=== PATIENT | female | born 1945 | race Caucasian/White ===

== ENCOUNTER → 2018-09-17 | Outpatient (CLI) | payer OTHER | END | disposition home or self-care (01) | LOC: RAH 14:12 | PROVIDERS: ATTEND Internal Medicine | DX: G45.9 Transient cerebral ischemic attack, unspecified (principal); R47.81 Slurred speech; M62.81 Muscle weakness (generalized) | CPT/HCPCS: 70450 ==

== ENCOUNTER → 2018-09-20 | Outpatient (CLI) | payer OTHER | END | disposition home or self-care (01) | LOC: RAH 08:58 → EDUNIT# 09:00 | PROVIDERS: ATTEND Internal Medicine | DX: I35.8 Other nonrheumatic aortic valve disorders (principal); G45.9 Transient cerebral ischemic attack, unspecified; I10 Essential (primary) hypertension; R47.81 Slurred speech; R53.1 Weakness | CPT/HCPCS: 93306; 93880 ==

== ENCOUNTER → 2019-01-05 | Outpatient (CLI) | payer OTHER | END | disposition home or self-care (01) | LOC: RAH 08:46 | PROVIDERS: ATTEND Internal Medicine | DX: Z12.31 Encounter for screening mammogram for malignant neoplasm of breast (principal) | CPT/HCPCS: 77067 ==

== ENCOUNTER → 2020-01-09 | Outpatient (CLI) | payer OTHER | END | disposition home or self-care (01) | LOC: RAH 09:34 | PROVIDERS: ATTEND Internal Medicine | DX: Z12.31 Encounter for screening mammogram for malignant neoplasm of breast (principal) | CPT/HCPCS: 77067 ==

== ENCOUNTER → 2020-11-21 | Outpatient (CLI) | payer OTHER | END | disposition home or self-care (01) | LOC: OIH 10:53 | PROVIDERS: ATTEND Internal Medicine | DX: M17.11 Unilateral primary osteoarthritis, right knee (principal) | CPT/HCPCS: 73560 ==

== ENCOUNTER → 2021-01-21 | Outpatient (CLI) | payer OTHER | END | disposition home or self-care (01) | LOC: RAH 11:24 | PROVIDERS: ATTEND Internal Medicine | DX: Z12.31 Encounter for screening mammogram for malignant neoplasm of breast (principal) | CPT/HCPCS: 77067 ==

== ENCOUNTER → 2023-02-02 | Outpatient (CLI) | payer OTHER | END | disposition home or self-care (01) | LOC: RAH 09:56 | PROVIDERS: ATTEND Internal Medicine | DX: Z12.31 Encounter for screening mammogram for malignant neoplasm of breast (principal) | CPT/HCPCS: 77067 ==

== ENCOUNTER 2023-04-26 03:21 | Emergency (ER) | payer OTHER ==
[~2023-04-26] VITALS: Ht 162.6 cm; Wt 72.6 kg
[2023-04-26 03:55] LABS: BASOPHILS # (AUTO) 0.07 K/uL (0.00-0.20); BASOPHILS % (AUTO) 0.5 % (0.0-5.0); EOSINOPHILS # (AUTO) 0.07 K/uL (0.00-0.70); EOSINOPHILS % (AUTO) 0.5 % (0.0-8.0); IMMATURE GRANULOCYTE ABSOLUTE 0.06 K/uL (0-1); LYMPHOCYTES # (AUTO) 1.7 K/uL (1.0-4.8); LYMPHOCYTES % (AUTO) 11.4 % (21.0-51.0); MEAN CORPUSCULAR HEMOGLOBIN 29.2 pg (27.0-33.0); MEAN CORPUSCULAR HGB CONC 32.3 g/dL (32.0-36.0); MEAN CORPUSCULAR VOLUME 90.6 fL (79-99); MONOCYTES # (AUTO) 0.9 K/uL (0.1-1.0); MONOCYTES % (AUTO) 6.2 % (3.0-13.0); NEUTROPHILS # (AUTO) 11.8 K/uL (1.8-7.7); PLATELET COUNT (AUTO) 274 K/uL (130-400); RED CELL DISTRIBUTION WIDTH 13.3 % (11.0-15.5); WHITE BLOOD COUNT (AUTO) 14.6 K/uL (4.8-10.8)
[2023-04-26 04:09] LABS: ALBUMIN 3.7 g/dL (3.5-5.0); BILIRUBIN,TOTAL 0.6 mg/dL (0.2-1.0); POTASSIUM 3.6 mmol/L (3.5-5.1); TOTAL PROTEIN, SERUM 7.1 g/dL (6.0-8.3)
[2023-04-26 05:06] VITALS: BP 143/68; PULSE 94; RESP 18; O2SAT 98
[2023-04-26] MEDS ORDERED: POLY17PO4 PO (05:12)
[2023-04-26] MEDS ORDERED: PANT40TA55 PO (05:12)
[2023-04-26] MEDS ORDERED: PANTOPRAZOLE 40 MG TAB DR PO SCH (05:30)
[2023-04-26] MEDS ORDERED: AMLO-258 PO (18:18)
[2023-04-26] MEDS ORDERED: CARV6.25 PO (18:18)
[2023-04-26] MEDS ORDERED: ROSU20TA73 PO (18:18)
[2023-04-29] MEDS ORDERED: LEVO-70 PO (08:51)
[2023-04-29] MEDS ORDERED: METR-172 PO (08:51)
== END 2023-04-26 05:38 | disposition home or self-care (01) ==
LOC: EDH 03:21
DX: K92.2 Gastrointestinal hemorrhage, unspecified (principal); E78.00 Pure hypercholesterolemia, unspecified; I10 Essential (primary) hypertension; Z88.0 Allergy status to penicillin; Z88.2 Allergy status to sulfonamides; Z90.49 Acquired absence of other specified parts of digestive tract; Z90.710 Acquired absence of both cervix and uterus
CPT/HCPCS: 36415; 80053; 82270; 85025; 93005

== ENCOUNTER → 2024-02-04 | Outpatient (CLI) | payer OTHER ==
[~2024-02-04] MED LIST: AMLO-258 PO; CARV6.25 PO; LEVO-70 PO; METR-172 PO; ROSU20TA98 PO
== END | disposition home or self-care (01) ==
LOC: RAH 10:25
PROVIDERS: ATTEND Internal Medicine
DX: Z12.31 Encounter for screening mammogram for malignant neoplasm of breast (principal); R92.30 Dense breasts, unspecified
CPT/HCPCS: 77067

== ENCOUNTER → 2024-07-25 | Outpatient (CLI) | payer OTHER ==
--- NOTE | 2024-07-25 16:45 | HMCIMG ---
Exam Type: ANKLE 2VWS RT Clinical Information: RIGHT ANKLE PAIN Comparison: None Findings: Routine views of the ankles reveal no evidence of acute fracture or dislocation. The ankle mortise is intact. There is no evidence of arthritic or inflammatory changes except for small calcaneal spurs. The soft tissues are preserved. IMPRESSION: Small calcaneal spurs.
--- NOTE | 2024-07-25 16:46 | HMCIMG ---
Exam Type: KNEE 3VWS RT Clinical Information: RIGHT KNEE PAIN Comparison: None Findings: The bone examination is unremarkable. No fractures or dislocations are seen. No radiopaque foreign bodies are noted. Soft tissues are preserved. IMPRESSION: Normal examination.
--- NOTE | 2024-07-25 16:47 | HMCIMG ---
Exam Type: HIP UNILAT 2-3VW RIGHT Clinical Information: RIGHT HIP PAIN Comparison: None Findings: The bone examination is unremarkable. No fractures or dislocations are seen. No radiopaque foreign bodies are noted. Soft tissues are preserved. IMPRESSION: Normal examination.
== END | disposition home or self-care (01) ==
LOC: RAH 12:11
PROVIDERS: ATTEND Internal Medicine
DX: M77.31 Calcaneal spur, right foot (principal); M25.571 Pain in right ankle and joints of right foot; M25.551 Pain in right hip; M25.561 Pain in right knee
CPT/HCPCS: 73502; 73562; 73600

== ENCOUNTER → 2025-01-10 | Outpatient (CLI) | payer OTHER ==
--- NOTE | 2025-01-10 18:00 | HMCIMG ---
EXAM: CT Abdomen and Pelvis without Intravenous Contrast CLINICAL HISTORY: Disorder of the adrenal gland. TECHNIQUE: Axial computed tomography images of the abdomen and pelvis without intravenous contrast. Dose reduction technique was used including one or more of the following: automated exposure control, adjustment of mA and kV according to patient size, and/or iterative reconstruction. CONTRAST: None. COMPARISON: CT ABD/PEL dated 04/26/2023, 15:59 pm FINDINGS: LUNG BASES: No basilar airspace consolidation or pleural effusion. LIVER: Unremarkable. GALLBLADDER AND BILE DUCTS: Unremarkable. No calcified stone. No ductal dilation. PANCREAS: Unremarkable. SPLEEN: Unremarkable. ADRENAL GLANDS: Unremarkable. KIDNEYS, URETERS, AND BLADDER: Large bilateral renal cysts, followed up with ultrasound, negative for obstructing ureteral stone. No hydronephrosis or nephrolithiasis. No ureteral or bladder calculi. STOMACH AND BOWEL: No obstruction. No wall thickening. Previously visualized thickening of the left colon from prior CT dated 04/26/2023 is not seen on the current exam. Sigmoid colon diverticulosis without diverticulitis. APPENDIX: No CT evidence for appendicitis. PERITONEUM: No free fluid. No free air. LYMPH NODES: No lymphadenopathy. REPRODUCTIVE: Uterus and adnexa are not visualized. VASCULATURE: Atherosclerotic aortoiliac bifurcation. No aortic aneurysm. ABDOMINAL WALL AND SOFT TISSUES: Unremarkable. BONES: No fracture or suspicious osseous abnormality. IMPRESSION: 1. No acute findings. 2. Sigmoid colon diverticulosis without diverticulitis. 3. Large bilateral renal cysts, followed up with ultrasound, negative for obstructing ureteral stone. 4. Previously visualized thickening of the left colon from prior CT ABD/PEL dated 04/26/2023, 15:59 pm is not seen on the current exam /[place]
== END | disposition home or self-care (01) ==
LOC: RAH 13:06
PROVIDERS: ATTEND Internal Medicine
DX: K57.30 Diverticulosis of large intestine without perforation or abscess without bleeding (principal); N28.1 Cyst of kidney, acquired; I70.0 Atherosclerosis of aorta; E27.9 Disorder of adrenal gland, unspecified
CPT/HCPCS: 74176

== ENCOUNTER → 2025-02-07 | Outpatient (CLI) | payer OTHER ==
--- NOTE | 2025-02-09 09:04 | HMCIMG ---
DIGITAL BILATERAL SCREENING MAMMOGRAM Technique: The digital mammographic examination of both breasts in craniocaudal and mediolateral oblique views along with CAD was obtained. History: This is a 79 years year-old female 2, para2 Ab0. Patient has no family history of breast cancer. Patient has no complaint Reference:Prior mammogram from 02/04/2024, 02/02/2023, 01/31/2022, 01/21/2021 and 01/09/2020 are available.. Breast composition: Breast composition B: There are scattered areas of fibroglandular density. Finding: The digital mammographic examination of both breasts in craniocaudal and mediolateral oblique view along with CAD demonstrates both breasts to BE mildly dense due to fibroglandular stromal elements. There are solitary scattered macrocalcifications seen in both breasts.. There is no evidence of any dendritic mass, cluster microcalcification or architectural distortion. The retromammary fat appears to be normal. IMPRESSION: Unchanged from prior mammography. NO RADIOGRAPHIC EVIDENCE OF MALIGNANT CHANGES. WE WOULD RECOMMEND ANNUAL FOLLOW UP WITH TOMOSYNTHESIS UNLESS OTHERWISE CLINICALLY INDICATED. FINAL ASSESSMENT: ACR: BI-RAD- 2. Benign Finding. NOTE: IF A WORK-UP OF THIS PATIENT LEADS TO A BIOPSY, PLEASE FORWARD A COPY OF THE PATHOLOGY REPORT TO OUR OFFICE REQUIRED BY [facility] EFFECTIVE JANUARY 11, 1994. A NEGATIVE MAMMOGRAM SHOULD NOT PRECLUDE BIOPSY OF A CLINICALLY PALPABLE SUSPICIOUS MASS, 10% OF BREAST CANCERS ARE MAMMOGRAPHICALLY OCCULT. THIS MAMMOGRAPHY FACILITY IS FULLY ACCREDITED BY THE [employer]OD AND DRUG [employer]RATION (FDA). THANK YOU FOR THIS REFERRAL.
== END | disposition home or self-care (01) ==
LOC: RAH 11:11
PROVIDERS: ATTEND Internal Medicine
DX: Z12.31 Encounter for screening mammogram for malignant neoplasm of breast (principal)
CPT/HCPCS: 77067